=== PATIENT | male | born 1975 | race African-American/Black ===

== ENCOUNTER 2019-03-15 14:30 | Emergency (ER) | payer MEDICAID | END 2019-03-15 15:52 | disposition left against medical advice (07) | LOC: ER 15:43 | DX: Z53.21 Procedure and treatment not carried out due to patient leaving prior to being seen by health care provider (principal) ==

== ENCOUNTER 2024-02-12 12:04 | Emergency (ER) | payer SELFPAY ==
[~2024-02-12] VITALS: Ht 180.3 cm; Wt 100.0 kg
[2024-02-12 12:12] VITALS: O2SAT 99
[2024-02-12] MEDS: ACETAMINOPHEN 325MG TABLET PO ONE (14:48)
[2024-02-12] MEDS: IBUPROFEN 400MG TABLET PO ONE (14:48)
[2024-02-12] MEDS ORDERED: IBUP-2028 MT (15:12)
[2024-02-12 15:36] VITALS: BP 122/66; PULSE 63; RESP 18; TEMP 37.11408; O2SAT 99
== END 2024-02-12 15:40 | disposition home or self-care (01) ==
LOC: ER 12:04
DX: S62.305A Unspecified fracture of fourth metacarpal bone, left hand, initial encounter for closed fracture (principal); W22.8XXA Striking against or struck by other objects, initial encounter; Y93.89 Activity, other specified; Y92.89 Other specified places as the place of occurrence of the external cause; Y99.8 Other external cause status
CPT/HCPCS: 29125; 73110; 73130; 99284

== ENCOUNTER 2024-05-25 11:56 | Emergency (ER) | payer MEDICAID ==
[~2024-05-25] VITALS: Ht 180.3 cm; Wt 93.0 kg
[~2024-05-25 11:56] MED LIST: IBUP-2028 MT
[2024-05-25 11:59] VITALS: O2SAT 99
[2024-05-25 12:23] VITALS: BP 113/78; PULSE 66; RESP 18; TEMP 37.1; O2SAT 99
[2024-05-25] MEDS: CEFTRIAXONE SODIUM 500MG VIAL IM ONE (14:08)
[2024-05-25 14:12] LABS: CLARITY URINE CLEAR (CLEAR); COLOR URINE YELLOW (YELLOW)
[2024-05-25 14:13] LABS: GLUCOSE URINE NEGATIVE (NEGATIVE); KETONES URINE NEGATIVE (NEGATIVE); LEUKOCYTE ESTERASE URINE NEGATIVE (NEGATIVE); NITRITE URINE NEGATIVE (NEGATIVE); OCCULT BLOOD URINE NEGATIVE (NEGATIVE); PROTEIN URINE NEGATIVE (NEGATIVE); UROBILINOGEN URINE 0.2 E.U./dL (0.2-1.0)
[2024-05-25] MEDS ORDERED: DOXY100C5 MT (14:17)
[2024-05-28 04:07] LABS: CHLAMYDIA TRACHOMATIS NAA Negative (Negative); NEISSERIA GONORRHOEAE NAA Negative (Negative)
== END 2024-05-25 14:30 | disposition home or self-care (01) ==
LOC: ER 11:56
DX: Z11.3 Encounter for screening for infections with a predominantly sexual mode of transmission (principal)
CPT/HCPCS: 99283; 87491; 87591; 81003; 82962; 87086; 36415; 96372; J0696

== ENCOUNTER 2024-09-08 09:24 | Emergency (ER) | payer MEDICAID ==
[~2024-09-08] VITALS: Ht 180.3 cm; Wt 92.0 kg
[~2024-09-08 09:24] MED LIST changes: +DOXY100C5 MT
[2024-09-08 09:33] VITALS: O2SAT 99
[2024-09-08 10:18] LABS: BASOPHILS % 0.8 % (0.0-2.0); DIFFERENTIAL COMMENT 0; EOSINOPHILS % 1.5 % (0.0-5.0); HEMATOCRIT. 44.6 % (42.0-52.0); HEMOGLOBIN. 14.9 g/dL (14.0-18.0); LYMPHOCYTES % 20.5 % (20.0-50.0); MEAN CORPUSCULAR HGB CONC 33.4 g/dL (31.0-37.0); MEAN CORPUSCULAR VOLUME 83.8 fL (80.0-94.0); MEAN PLATELET VOLUME 9.2 fl (7.4-10.4); MONOCYTES % 9.4 % (2.0-8.0); NEUTROPHILS % 67.8 % (40.0-76.0); PLATELET 119 x1000/uL (130-400); RED BLOOD CELL COUNT 5.32 mill/uL (4.7-6.1); RED CELL DISTRIBUTION WIDTH 13.7 % (11.6-14.6); WHITE BLOOD COUNT 5.6 x1000/uL (4.5-11.0)
[2024-09-08 10:27] LABS: CHLORIDE 99 mEq/L (98-107); POTASSIUM 3.8 mEq/L (3.5-5.1); SODIUM 134 mEq/L (136-145)
[2024-09-08 10:28] LABS: CALCIUM 8.9 mg/dL (8.7-10.4); CARBON DIOXIDE 28 mEq/L (21-32)
[2024-09-08 10:33] LABS: CREATININE 1.3 mg/dL (0.6-1.3); GLUCOSE 99 mg/dL (70-105); UREA NITROGEN BLOOD 16 mg/dL (9-23)
[2024-09-08 10:35] LABS: ALANINE AMINOTRANSFERASE 32 IU/L (10-49); ALBUMIN 4.9 g/dL (3.2-4.8); ASPARTATE AMINOTRANSFERASE 35 IU/L (<34); BILIRUBIN TOTAL 0.7 mg/dL (0.1-1.0); PROTEIN TOTAL 7.8 g/dL (6.0-8.3)
[2024-09-08 11:51] VITALS: BP 99/64; PULSE 74; RESP 18; TEMP 36.7; O2SAT 99
[2024-09-08 15:38] LABS: INFLUENZA TYPE A Presumptive Negative (Pres. Neg.); INFLUENZA TYPE B Presumptive Negative (Pres. Neg.)
[2024-09-08 15:39] LABS: RESPIRATORY SYNCYTIAL VIRUS Not Detected (Not Detectd)
== END 2024-09-08 11:54 | disposition home or self-care (01) ==
LOC: ER 09:24
DX: R61 Generalized hyperhidrosis (principal); Z20.822 Contact with and (suspected) exposure to COVID-19; Z98.890 Other specified postprocedural states
CPT/HCPCS: 36415; 71045; 80053; 85025; 87420; 87426; 87804; 99284